=== PATIENT | male | born 1950 | race Caucasian/White ===

== ENCOUNTER 2019-09-08 09:03 | Day surgery (SDC) | payer OTHER, MEDICARE, BC ==
[~2019-09-08 09:03] MED LIST: Glycopyrrolate 0.2 MG/ML SDV ONE; Lactated Ringers 1,000 ML IV SCH; Lidocaine 2% 5 ML SDV ONE; Midazolam 1 MG/ML 2 ML SDV ONE; Propofol 200 MG/20 ML SDV ONE
--- NOTE | 2019-09-08 09:53 | PCM.PREANE ---
Preanesthetic Assessment - Anesthesia/Transfusion/Family Hx Anesthesia History: Prior Anesthesia Reaction Other Type of Anesthesia Reaction Comment: only during last ankle surgery Family History of Anesthesia Reaction: No Transfusion History: No Prior Transfusion(s) Intubation History: Unknown - Review of Systems General: No Symptoms Pulmonary: No Symptoms Cardiovascular: No Symptoms Gastrointestinal: Other (h/o colon polyp and long standing GERD) Neurological: No Symptoms Other: Reports: None - Physical Assessment Vital Signs: Last Vital Signs Temp 36.1 C 09/08/19 09:22 Pulse 70 09/08/19 09:22 Resp 16 09/08/19 09:22 BP 154/96 H 09/08/19 09:22 Pulse Ox 97 09/08/19 09:22 Height: 6 ft 2 in Weight: 136.531 kg ASA Class: 3 Mental Status: Alert & Oriented x3 Airway Class: Mallampati = 2 Dentition: Reports: Normal Dentition, [place](s) (x1 upper left and right (sides)) Thyro-Mental Finger Breadths: 3 Mouth Opening Finger Breadths: 3 ROM/Head Extension: Full Lungs: Clear to Auscultation, Normal Respiratory Effort Cardiovascular: Regular Rate, Regular Rhythm - Allergies Allergies/Adverse Reactions: Allergies Allergy/AdvReac Type Severity Reaction Status Date / Time No Known Allergies Allergy Verified 09/08/19 09:26 - Blood Blood Available: No - Anesthesia Plan Pre-Op Medication Ordered: None - Acknowledgements Anesthesia Type Planned: MAC Pt an Appropriate Candidate for the Planned Anesthesia: Yes Alternatives and Risks of Anesthesia Discussed w Pt/Guardian: Yes Pt/Guardian Understands and Agrees with Anesthesia Plan: Yes PreAnesthesia Questionnaire HEENT History: Reports: Other (See Below) Other HEENT History: wears glasses Cardiovascular History: Reports: CAD, High Cholesterol, Hypertension Other Cardiovascular History: hx of TIA 4 years ago Respiratory History: Reports: Asthma (moderate per patient) Other Respiratory History: uses rescue inhaler occasionally- maybe every 2 weeks, more in the winter Gastrointestinal History: Reports: Colon Polyp, GERD, Hiatal Hernia Genitourinary History: Reports: BPH Musculoskeletal History: Reports: Fracture Other Musculoskeletal History: hx of fx thumb- had closed reduction as a child Neurological History: Reports: TIA Other Neuro History: gets visual aura but minimal headaches, TIA 3 years ago Psychiatric History: Reports: Anxiety, Depression Endocrine/Metabolic History: Reports: None (38.6), Obesity/BMI 30+ Hematologic History: Reports: Anticoagulation Therapy - Infectious Disease History Infectious Disease History: Reports: Chicken Pox, Measles, Mumps - Past Surgical History Head Surgeries/Procedures: Reports: None HEENT Surgical History: Reports: None Cardiovascular Surgical History: Reports: Coronary Artery Stent Other Cardiovascular Surgeries/Procedures: 1 stent placed 4 years ago- denies current chest pain and SOB Respiratory Surgical History: Reports: None GI Surgical History: Reports: Appendectomy, Colonoscopy, EGD, Other (See Below) Other GI Surgeries/Procedures: Umbilical hernia repair Musculoskeletal Surgical History: Reports: Carpal Tunnel, Joint Replacement, Other (See Below) Other Musculoskeletal Surgeries/Procedures:: repair of left Achilles tendon, right total ankle arthroplasty (has hardware), bilateral CTR - SUBSTANCE USE Smoking Status *Q: Never Smoker Recreational Drug Use History: No - HOME MEDS Home Medications: Home Meds Escitalopram Oxalate [Lexapro] 15 mg PO DAILY 06/17/15 [History] Fluticasone/Salmeterol [Advair Diskus 250-50] 1 puff INH BID 06/17/15 [History] Lisinopril 10 mg PO QAM 06/17/15 [History] atorvaSTATin [Lipitor] 20 mg PO BEDTIME 06/17/15 [History] Albuterol [Ventolin HFA] 1 - 2 puff INH Q4H PRN 12/02/18 [History] Aspirin [Adult Low Dose Aspirin EC] 81 mg PO DAILY 12/02/18 [History] Clopidogrel Bisulfate [Plavix] 75 mg PO DAILY 12/02/18 [History] Omeprazole 20 mg PO QAM 12/02/18 [History] Saw Reading 1,000 mg PO DAILY 12/02/18 [History] Sildenafil Citrate 2 - 4 tab PO ASDIRECTED PRN 12/02/18 [History] - CURRENT (IN HOUSE) MEDS Current Meds: Current Medications Lactated Ringer's (Ringers, Lactated) 1,000 mls @ 125 mls/hr IV ASDIRECTED SETH Last Admin: 09/08/19 09:26 Dose: 125 mls/hr Documented by: Discontinued Medications Glycopyrrolate (Robinul) Confirm Administered Dose 0.2 mg .ROUTE .STK-MED ONE Stop: 09/08/19 07:42 Lidocaine (Xylocaine-Mpf 2%) Confirm Administered Dose 5 ml .ROUTE .STK-MED ONE Stop: 09/08/19 07:42 Midazolam HCl (Versed 1 Mg/Ml) Confirm Administered Dose 2 mg .ROUTE .STK-MED ONE Stop: 09/08/19 07:05 Propofol (Diprivan 20 Ml) Confirm Administered Dose 400 mg .ROUTE .STK-MED ONE Stop: 09/08/19 07:05
[2019-09-08] MEDS ORDERED: Propofol 200 MG/20 ML SDV ONE (11:59)
--- NOTE | 2019-09-08 12:43 | PCM.OPNOTE ---
- General Post-Op/Procedure Note Date of Surgery/Procedure: 09/08/19 Operative Procedure(s): egd w bx. colonoscopy w bx Findings: see [id number] Pre Op Diagnosis: hx of polyp and gerd Post-Op Diagnosis: Same Anesthesia Technique: Moderate Sedation Primary Surgeon: Aubrey Odell Pathology: sent Complications: None Condition: Good
--- NOTE | 2019-09-08 12:57 | PCM.POSTAN ---
POST ANESTHESIA ASSESSMENT - MENTAL STATUS Mental Status: Alert, Oriented - VITAL SIGNS Vital Signs: Last Vital Signs Temp 36.1 C 09/08/19 09:22 Pulse 71 09/08/19 12:44 Resp 12 09/08/19 12:44 BP 114/73 09/08/19 12:44 Pulse Ox 94 L 09/08/19 12:44 - RESPIRATORY Respiratory Status: Respiratory Rate WNL, Airway Patent, O2 Saturation Stable - CARDIOVASCULAR CV Status: Pulse Rate WNL, Blood Pressure Stable - GASTROINTESTINAL GI Status: No Symptoms - PAIN Pain Score: 0 - POST OP HYDRATION Hydration Status: Adequate & Stable - OBSERVATIONS Free Text/Narrative:: No anesthesia problems
[2019-09-08 12:59] VITALS: BP 123/76; PULSE 70
--- NOTE | 2019-09-08 13:06 | PCM48HPAN ---
Post Anesthesia Note - EVALUATION WITHIN 48HRS OF ANESTHETIC Vital Signs in Normal Range: Yes Patient Participated in Evaluation: Yes Respiratory Function Stable: Yes Airway Patent: Yes Cardiovascular Function Stable: Yes Hydration Status Stable: Yes Pain Control Satisfactory: Yes Nausea and Vomiting Control Satisfactory: Yes Mental Status Recovered: Yes Vital Signs: Last Vital Signs Temp 97.2 C H 09/08/19 12:50 Pulse 70 09/08/19 12:50 Resp 14 09/08/19 12:50 BP 123/76 09/08/19 12:50 Pulse Ox 92 L 09/08/19 12:50 - COMMENTS/OBSERVATIONS Free Text/Narrative:: No anesthesia problems
--- NOTE | 2019-09-08 16:39 | OR ---
SURGEON: Aubrey Odell MD DATE OF PROCEDURE: 09/08/2019 PREOPERATIVE DIAGNOSES: History of colon polyp and acid reflux. PROCEDURES PERFORMED: Esophagogastroduodenoscopy with biopsy and colonoscopy with biopsy. DESCRIPTION OF PROCEDURE: EGD: The patient was taken to the endoscopy room, and with the SPEEDER MACHINE OPERATOR, Diprivan was administered. A well-lubricated EGD scope was gently inserted through the oropharynx, down the esophagus, passing through the gastroesophageal junction, into the stomach. The mucosa was examined upon the passage. Any etiology will be noted. Once in the stomach, we continued to advance to the distal antrum, passed through the pylorus into the second portion of the duodenum. Again, the mucosa was examined for any abnormality and etiology. The scope was then retrieved back to the stomach and then retroflexed to look at the fundus of the stomach. If a biopsy was indicated, we will biopsy the antrum, body, and gastroesophageal junction. The air will be sucked out while the scope is retrieved to reduce the patient's discomfort. The patient tolerated the procedure well. There were no intraoperative complications. Dr. Odell was present through the whole procedure. Prior to surgery, a time-out had been called, the patient identified, procedure identified and antibiotic administered. The patient was taken to the endoscopy room. A time out was called, patient identified, and procedure identified. Diprivan was then administrated. Patient went from awake to sleep, hearing doctor talking or door closing is normal. Perineum inspection and digital examination were then performed. A well- lubricated colonoscope was gently inserted through the rectum, advanced past the rectosigmoid junction, the descending colon, splenic flexure, transverse colon, hepatic flexure, ascending colon, arrived to the cecum. Cecum was identified as dictated in the finding. Then the scope was carefully withdrawn while attention was paid to the mucosal surface for any abnormality. Air will be sucked out during the scope withdrawal. At the rectum, retroflexed to examine any rectal diseases, fistula or hemorrhoids. During mucosal examination, abnormality or polyp was noted; picture taken and biopsy performed. Patient tolerated procedure well. There were no intraoperative complications, and Dr. Odell was present throughout the whole procedure. FINDINGS: EGD findings: 1. The patient is easily sedated with SPEEDER MACHINE OPERATOR and Diprivan, the patient is soundly snoring. 2. Oropharynx and proximal esophagus are free of disease. Distal esophagus at distance 40 shows about to form Schatzki ring. Stomach rugae are normal in appearance and a little bit of liquid, undigested food or bile. There is no food particle, but looks like some digested food. Antrum looks normal. Duodenum grossly normal. Retroflexed look at the fundus of the stomach, there is a small polyp at greater curvature, which was biopsied. Then sucked out the gas while scope pulling out. During the whole study, there is no blood, no ulcer, and some yellow speck of food, undigested, floating on top of saliva and bile. Colonoscopy findings: 1. The patient is easily sedated with SPEEDER MACHINE OPERATOR and Diprivan, the patient is soundly snoring. 2. Bowel prep is average with some liquid stool, no semi-formed stool or stool ball. 3. The patient's colon is very tortuous and redundant at the left colon and makes negotiation in the hepatic flexure almost impossible. We positioned the patient to his back and then positioned back to the side. Then we were able to manage to get to the cecum. Cecum is indicated by ileocecal fold, one-to-one indentation. ScopeGuide is pointing south. Appendiceal orifice is not observed and light emittance is not observed. Because of the patient's body habitus, it is extremely difficult to maneuver him. He weighed 301 pounds. When the scope coming out, there is a small polyp and it was removed with biopsy forceps. Distance is 85 cm when scope coming out. Other than that, no diverticulosis, other mass, growth, inflammation, stricture, ulceration, AV malformation, bleeding, none of those. The patient has some mild external hemorrhoids and mild internal hemorrhoids. The patient has something like a dot like a BB gun at the 12 o'clock of his anal opening. With all things considered, the patient's next colonoscopy should probably and preferably done by refer out as the patient's body habitus and redundant colon are very difficult for myself. We will discuss that on the patient's return to office. TOM / YOKO /[id number]
== END 2019-09-08 13:35 | disposition home or self-care (01) ==
LOC: MW.SDS 09:03
PROVIDERS: ATTEND Surgery
DX: Z12.11 Encounter for screening for malignant neoplasm of colon (principal); D12.6 Benign neoplasm of colon, unspecified; K22.2 Esophageal obstruction; Q43.8 Other specified congenital malformations of intestine; K64.8 Other hemorrhoids; K64.4 Residual hemorrhoidal skin tags; J45.909 Unspecified asthma, uncomplicated; K31.7 Polyp of stomach and duodenum; N40.0 Benign prostatic hyperplasia without lower urinary tract symptoms; I25.10 Atherosclerotic heart disease of native coronary artery without angina pectoris; F41.9 Anxiety disorder, unspecified; F32.9 Major depressive disorder, single episode, unspecified; K21.9 Gastro-esophageal reflux disease without esophagitis; E66.9 Obesity, unspecified; I10 Essential (primary) hypertension; E78.00 Pure hypercholesterolemia, unspecified; Z79.82 Long term (current) use of aspirin; Z79.899 Other long term (current) drug therapy; Z98.890 Other specified postprocedural states; Z86.010 Personal history of colon polyps; Z83.71 Family history of colonic polyps; Z68.38 Body mass index [BMI] 38.0-38.9, adult
CPT/HCPCS: 43239; 45380; 88305; J2001; J2250; J2704; J3490; J7120; 00813

== ENCOUNTER 2021-05-16 04:39 | Emergency (ER) | payer MEDICARE, BC ==
[2021-05-16] MEDS ORDERED: Acetaminophen 500 MG Tab PO ONE (05:15)
[2021-05-16] MEDS ORDERED: Ondansetron 4 MG/2 ML SDV IVPUSH ONE (05:15)
[2021-05-16] MEDS ORDERED: Sodium Chloride 0.9% 1,000 ML IV ONE (05:15)
[2021-05-16] MEDS ORDERED: Ibuprofen 600 MG Tab PO ONE (05:15)
[2021-05-16] MEDS ORDERED: Sodium Chloride 0.9% 2.5 ML Syringe FLUSH PRN (05:15)
[2021-05-16] MEDS: Sodium Chloride 0.9% 10 ML Syringe FLUSH PRN ×2 (05:58→06:02)
[2021-05-16 06:20] LABS: BLOOD UREA NITROGEN,BUN 16 mg/dL (7.0-18.0); CARBON DIOXIDE,CO2 22.3 mmol/L (21.0-32.0); CHLORIDE,CL 98 mmol/L (98-107); GLUCOSE RANDOM 133 mg/dL (74-106); SODIUM,NA 132 mmol/L (136-148)
[2021-05-16 06:31] LABS: CORONAVIRUS COVID-19 NAA NEGATIVE (NEGATIVE); INFLUENZA A NAA NEGATIVE (NEGATIVE); INFLUENZA B NAA NEGATIVE (NEGATIVE)
[2021-05-16] MEDS ORDERED: Iopamidol 755 MG/ML 500 ML Multipack Bottle IVPUSH STA (06:55)
[2021-05-16] MEDS ORDERED: cefTRIAXone 1 GM in Sodium Chloride 0.9% 50 ML IV ONE (06:58)
[2021-05-16 08:01] VITALS: BP 119/67; PULSE 83
== END 2021-05-16 08:01 | disposition home or self-care (01) ==
LOC: MW.ED 04:39
DX: N39.0 Urinary tract infection, site not specified (principal); I25.10 Atherosclerotic heart disease of native coronary artery without angina pectoris; E78.00 Pure hypercholesterolemia, unspecified; J45.909 Unspecified asthma, uncomplicated; I10 Essential (primary) hypertension; K21.9 Gastro-esophageal reflux disease without esophagitis; E66.9 Obesity, unspecified; Z68.41 Body mass index [BMI] 40.0-44.9, adult; Z86.73 Personal history of transient ischemic attack (TIA), and cerebral infarction without residual deficits; Z79.899 Other long term (current) drug therapy; Z79.82 Long term (current) use of aspirin; Z90.49 Acquired absence of other specified parts of digestive tract; Z20.822 Contact with and (suspected) exposure to COVID-19
CPT/HCPCS: 0240U; 36415; 71045; 71275; 80053; 81001; 83605; 83880; 84484; 85025; 85379; 87040; 87077; 87186; 93005; 96365; 96375; 99285; A9270; J0696; J2405; J7030; Q9967; 93010; 99283; J3490

== ENCOUNTER 2021-05-17 06:16 | Inpatient (IN) | payer MEDICARE, BC ==
[2021-05-17] MEDS ORDERED: cefTRIAXone 2 GM in Premix Bag 1 BAG IV ONE (06:29)
[2021-05-17] MEDS ORDERED: Sodium Chloride 0.9% 2.5 ML Syringe FLUSH PRN (06:54)
[2021-05-17] MEDS ORDERED: Sodium Chloride 0.9% 10 ML Syringe FLUSH PRN (06:54)
[2021-05-17] MEDS ORDERED: Sodium Chloride 0.9% 1,000 ML IV ONE (06:54)
[2021-05-17 07:46] LABS: CARBON DIOXIDE,CO2 21.8 mmol/L (21.0-32.0); POTASSIUM,K 3.9 mmol/L (3.5-5.1)
[2021-05-17] MEDS ORDERED: Piperacillin/Tazobactam 3.375 GM in Sodium Chloride 0.9% 100 ML IV SCH (08:45)
[2021-05-17] MEDS ORDERED: Albuterol 8 GM Inhaler INH PRN (12:46)
[2021-05-17] MEDS: Piperacillin/Tazobactam 3.375 GM in Sodium Chloride 0.9% 100 ML IV SCH ×3 (12:54→23:59)
[2021-05-17] MEDS: Sodium Chloride 0.9% 1,000 ML IV SCH ×2 (12:57→22:07)
[2021-05-17] MEDS: Clopidogrel 75 MG Tab PO SCH (13:38)
[2021-05-17] MEDS: Escitalopram 10 MG Tab PO SCH (13:38)
[2021-05-17] MEDS: atorvaSTATin 20 MG Tab PO SCH (20:40)
[2021-05-18] MEDS: Piperacillin/Tazobactam 3.375 GM in Sodium Chloride 0.9% 100 ML IV SCH ×3 (06:14→18:14)
[2021-05-18] MEDS: Sodium Chloride 0.9% 1,000 ML IV SCH ×2 (06:14→15:17)
[2021-05-18 06:42] LABS: CARBON DIOXIDE,CO2 21.2 mmol/L (21.0-32.0); POTASSIUM,K 3.6 mmol/L (3.5-5.1)
[2021-05-18] MEDS: Omeprazole 20 MG Cap.CR PO SCH (06:57)
[2021-05-18] MEDS: Escitalopram 10 MG Tab PO SCH (09:56)
[2021-05-18] MEDS: Clopidogrel 75 MG Tab PO SCH (09:56)
[2021-05-18] MEDS: Heparin Sodium 5,000 Units/ML Vial SUBCUT SCH (13:58)
[2021-05-18] MEDS: Acetaminophen 325 MG Tab PO PRN (19:51)
[2021-05-18] MEDS: atorvaSTATin 20 MG Tab PO SCH (20:40)
[2021-05-19] MEDS: Piperacillin/Tazobactam 3.375 GM in Sodium Chloride 0.9% 100 ML IV SCH ×2 (00:04→06:00)
[2021-05-19] MEDS: Heparin Sodium 5,000 Units/ML Vial SUBCUT SCH (03:32)
[2021-05-19 06:07] LABS: BLOOD UREA NITROGEN,BUN 17 mg/dL (7.0-18.0); CARBON DIOXIDE,CO2 20.9 mmol/L (21.0-32.0); CHLORIDE,CL 103 mmol/L (98-107); GLUCOSE RANDOM 101 mg/dL (74-106); POTASSIUM,K 3.3 mmol/L (3.5-5.1); SODIUM,NA 135 mmol/L (136-148)
[2021-05-19] MEDS: Omeprazole 20 MG Cap.CR PO SCH (06:41)
[2021-05-19] MEDS ORDERED: Albuterol/Ipratropium 3.0-0.5 MG/3 ML Neb Soln NEB PRN (07:58)
[2021-05-19] MEDS ORDERED: Potassium Chloride 20 MEQ Tab.ER PO ONE ×2 (08:11→08:21)
[2021-05-19] MEDS: Escitalopram 10 MG Tab PO SCH (08:47)
[2021-05-19] MEDS: Clopidogrel 75 MG Tab PO SCH (08:48)
[2021-05-19] MEDS ORDERED: Tamsulosin 0.4 MG Cap.ER PO SCH (09:00)
[2021-05-19] MEDS ORDERED: Fluticasone/Salmeterol 250-50 MCG Inhalation Powder 14/Diskus INH SCH (09:00)
[2021-05-19] MEDS: Acetaminophen 325 MG Tab PO PRN (09:04)
[2021-05-19] MEDS ORDERED: Levofloxacin 500 MG Tab PO ONE (10:03)
[2021-05-19 15:34] VITALS: BP 144/77; PULSE 61
== END 2021-05-19 14:10 | disposition home or self-care (01) | DRG 690 ==
LOC: MW.ED 06:16 → MW.MS 07:01 → UNDOADMIN 07:44
PROVIDERS: ADMIT Internal Medicine; ATTEND Internal Medicine
DX: N39.0 Urinary tract infection, site not specified (principal); R78.81 Bacteremia; N17.9 Acute kidney failure, unspecified; Z97.3 Presence of spectacles and contact lenses; Z68.41 Body mass index [BMI] 40.0-44.9, adult; I10 Essential (primary) hypertension; I25.10 Atherosclerotic heart disease of native coronary artery without angina pectoris; E78.00 Pure hypercholesterolemia, unspecified; F41.9 Anxiety disorder, unspecified; F32.A Depression, unspecified; K44.9 Diaphragmatic hernia without obstruction or gangrene; N40.0 Benign prostatic hyperplasia without lower urinary tract symptoms; E66.9 Obesity, unspecified; K21.9 Gastro-esophageal reflux disease without esophagitis; J45.909 Unspecified asthma, uncomplicated; B96.89 Other specified bacterial agents as the cause of diseases classified elsewhere; Z79.82 Long term (current) use of aspirin; N40.1 Benign prostatic hyperplasia with lower urinary tract symptoms; N13.8 Other obstructive and reflux uropathy; R33.8 Other retention of urine; Z79.899 Other long term (current) drug therapy; Z79.01 Long term (current) use of anticoagulants; Z86.73 Personal history of transient ischemic attack (TIA), and cerebral infarction without residual deficits; Z90.49 Acquired absence of other specified parts of digestive tract; Z95.5 Presence of coronary angioplasty implant and graft
CPT/HCPCS: 36415; 51701; 51702; 51798; 74176; 74176-26; 80048; 80053; 81001; 83605; 85025; 87040; 87086; 93005; 93010; 99221; 99231; 99238; 99284; 99285-25; A9270-GY; J0696; J1644; J2543; J3490; J7030

== ENCOUNTER 2024-05-16 08:03 | Emergency (ER) | payer MEDICARE, BC ==
[2024-05-16] MEDS ORDERED: Sodium Chloride 0.9% 20 ML SDV IV PRN (08:42)
[2024-05-16] MEDS ORDERED: Sodium Chloride 0.9% 2.5 ML Syringe FLUSH PRN (08:42)
[2024-05-16] MEDS ORDERED: Sodium Chloride 0.9% 10 ML Syringe FLUSH PRN (08:42)
[2024-05-16 09:04] LABS: HEMATOCRIT 39.9 % (42.0-52.0); HEMOGLOBIN 13.9 g/dL (14.0-18.0); MEAN CORPUSCULAR HGB CONC 34.8 g/dL (32.0-36.0); MEAN CORPUSCULAR VOLUME 80.4 fL (83.0-99.0); MEAN PLATELET VOLUME 9.2 fL (9.4-12.4); PLATELET COUNT,PLT 252 K/uL (150-400); RED BLOOD CELL COUNT 4.96 M/uL (4.52-5.90)
[2024-05-16 09:13] LABS: INR 1.06 (0.86-1.11); PTT,PARTIAL THROMBOPLSTIN TIME 35.9 SEC (23.9-30.7)
[2024-05-16 09:30] LABS: A/G RATIO 1.6 (0.9-1.6); ALBUMIN 4.3 g/dL (3.4-5.0); BILIRUBIN TOTAL 0.8 mg/dL (0.2-1.0); CALCIUM 9.6 mg/dL (8.5-10.1); CARBON DIOXIDE,CO2 26.3 mmol/L (21.0-32.0); CREATININE 1.1 mg/dL (0.8-1.3); EST CRCL DRUG DOSING (CG) 69.54 mL/min; MAGNESIUM 1.9 mg/dL (1.8-2.4); POTASSIUM,K 4.1 mmol/L (3.5-5.1)
[2024-05-16 09:49] LABS: EOSINOPHILS ABSOLUTE MAN 0.05 K/uL (0.00-0.45); EOSINOPHILS PERCENT MAN 1 % (0-6); LYMPHOCYTES ABSOLUTE MAN 1.56 K/uL (1.00-4.80); LYMPHOCYTES PERCENT MAN 30 % (24-44); METAMYELOCYTE ABSOLUTE MAN 0.16; METAMYELOCYTE PERCENT MAN 3 %; MONOCYTES ABSOLUTE MAN 0.31 K/uL (0.00-0.80); MONOCYTES PERCENT MAN 6 % (0-8); SEG NEUTROPHILS ABSOLUTE MAN 3.12 K/uL (1.80-7.70); SEG NEUTROPHILS PERCENT MAN 60 % (41-71)
[2024-05-16] MEDS: Iopamidol 755 MG/ML 500 ML Multipack Bottle IVPUSH STA (09:59)
[2024-05-16 13:47] VITALS: BP 117/72; PULSE 66
[2024-05-16 13:48] LABS: APPEARANCE,URINE CLEAR; BILIRUBIN,URINE NEGATIVE (NEGATIVE); COLOR,URINE YELLOW; GLUCOSE,URINE NEGATIVE (NEGATIVE); KETONES,URINE NEGATIVE (NEGATIVE); LEUKOCYTE ESTERASE,URINE NEGATIVE (NEGATIVE); NITRITE,URINE NEGATIVE (NEGATIVE); OCCULT BLOOD,URINE NEGATIVE (NEGATIVE); PH,URINE 5.5 (5.0-8.0); PROTEIN,URINE NEGATIVE (NEGATIVE); UROBILINOGEN,URINE 0.2 EU/dL (<2.0)
== END 2024-05-16 13:47 | disposition home or self-care (01) ==
LOC: MW.ED 08:03
DX: R20.2 Paresthesia of skin (principal); E78.00 Pure hypercholesterolemia, unspecified; I25.10 Atherosclerotic heart disease of native coronary artery without angina pectoris; I10 Essential (primary) hypertension; Z79.82 Long term (current) use of aspirin; Z79.899 Other long term (current) drug therapy; Z79.02 Long term (current) use of antithrombotics/antiplatelets; Z79.84 Long term (current) use of oral hypoglycemic drugs
CPT/HCPCS: 36415; 70450; 70496; 70498; 70551; 71046; 80053; 81003; 83735; 83880; 84484; 85025; 85610; 85730; 93005; 99284; Q9967; 93010

== ENCOUNTER 2024-08-28 06:47 | Day surgery (SDC) | payer MEDICARE, BC ==
[2024-08-28] MEDS: Lactated Ringers 1,000 ML IV SCH (07:20)
[2024-08-28] MEDS ORDERED: Propofol 200 MG/20 ML SDV ONE ×4 (07:34→09:15)
[2024-08-28] MEDS ORDERED: Ketamine HCL/NACL, ISO-OSM 50 MG/5 ML Syringe ONE (08:00)
[2024-08-28] MEDS ORDERED: fentaNYL 100 MCG/2 ML SDV ONE (08:32)
[2024-08-28] MEDS ORDERED: propofoL 500 MG/50 ML 50 ML ONE (08:42)
[2024-08-28] MEDS ORDERED: Succinylcholine/Sod PF 100 MG/5 ML SYRINGE IV ONE (09:43)
[2024-08-28] MEDS ORDERED: Lactated Ringers 1,000 ML IV SCH (09:45)
[2024-08-28 10:47] VITALS: BP 134/86; PULSE 62
== END 2024-08-28 11:15 | disposition home or self-care (01) ==
LOC: MW.SDS 06:47
PROVIDERS: ATTEND Surgery
DX: Z12.11 Encounter for screening for malignant neoplasm of colon (principal); G47.33 Obstructive sleep apnea (adult) (pediatric); Q43.8 Other specified congenital malformations of intestine; I25.10 Atherosclerotic heart disease of native coronary artery without angina pectoris; I10 Essential (primary) hypertension; E66.9 Obesity, unspecified; Z79.82 Long term (current) use of aspirin; Z68.41 Body mass index [BMI] 40.0-44.9, adult; Z79.84 Long term (current) use of oral hypoglycemic drugs; Z79.899 Other long term (current) drug therapy; Z86.0101 Personal history of adenomatous and serrated colon polyps
CPT/HCPCS: 82947; G0105; J1596; J2704; J3010; J7120; 00811; 99100; J3490